=== PATIENT | male | born 1980 | race American Indian/Alaskan Native ===

== ENCOUNTER 2020-10-18 09:55 | Emergency (ER) | payer SELFPAY ==
[2020-10-18 10:51] VITALS: BP 121/53
--- NOTE | 2020-10-18 10:59 | Emergency Department Report ---
HPI - General Chief Complaint: Allergic Reaction Time Seen by Provider: 10/18/20 10:53 ED Review of Systems ROS: Stated complaint: ALLERGIC REACTION Other details as noted in HPI Physical Exam - Physical Exam Vital Signs: Vital Signs 10/18/20 10:49 Temperature 98.1 F Pulse Rate 80 Respiratory 16 Rate Blood Pressure 121/53 [Left] O2 Sat by Pulse 97 Oximetry ED Course Vital Signs 10/18/20 10:49 Temperature 98.1 F Pulse Rate 80 Respiratory 16 Rate Blood Pressure 121/53 [Left] O2 Sat by Pulse 97 Oximetry Critical care attestation.: If time is entered above; I have spent that time in minutes in the direct care of this critically ill patient, excluding procedure time. ED Disposition Condition: Stable
--- NOTE | 2020-10-18 11:05 | Emergency Department Report ---
ED Allergic Reaction HPI - General Chief complaint: Allergic Reaction Stated complaint: ALLERGIC REACTION Time Seen by Provider: 10/18/20 10:53 Source: patient Mode of arrival: Ambulatory Limitations: No Limitations - History of Present Illness Initial Comments: The patient was evaluated in the emergency department for symptoms described in the history of present illness. He/she was evaluated in the context of the global COVID-19 pandemic, which necessitated consideration that the patient might be at risk for infection with the virus that causes COVID-19. Institutional protocols and algorithms that pertain to the evaluation of patients at risk for COVID-19 are in a state of rapid change based on information released by regulatory bodies including the CDC and federal and state organizations. These policies and algorithms were followed during the patient's care in the emergency department. Please note that these policies, procedures and recommendations changed on a rapid basis. 40-year-old -[place] male presents to the emergency room complaining of rash like hives for 2 days. Patient states that it itches. States that it has been in his chest his neck extremities. Patient reports has been using alcohol which kind of helps but then they will come out at another spot. Patient states he did not take Benadryl as he has been working and did not want to be sleepy. Patient does admit that he stayed at a friend's house Friday to Friday. He denies any shortness of breath no difficulty swallowing no feeling of throat anastacio sing. He denies any past medical history currently takes no medications on a daily basis and has no primary care provider. MD Complaint: hives Onset/Timin -: days(s) Symptoms: itching Severity: mild Treatment Prior to Arrival: topical medicine Previous Allergy History: none - Related Data Previous Rx's Medication Instructions Recorded Last Taken Type Cetirizine HCl [Zyrtec 10mg tab] 10 mg PO QDAY #20 tablet 10/18/20 Unknown Rx Famotidine [Pepcid] 10 mg PO BID 10 Days #20 tablet 10/18/20 Unknown Rx Prednisone [predniSONE 5 mg (6-Day 5 mg PO .TAPER #1 tab.ds.pk 10/18/20 Unknown Rx Pack, 21 Tabs)] Allergies Allergy/AdvReac Type Severity Reaction Status Date / Time No Known Allergies Allergy Unverified 10/18/20 10:51 ED Review of Systems ROS: Stated complaint: ALLERGIC REACTION Other details as noted in HPI ED Past Medical Hx - Medications Home Medications: Home Medications Medication Instructions Recorded Confirmed Last Taken Type Cetirizine HCl [Zyrtec 10mg tab] 10 mg PO QDAY #20 tablet 10/18/20 Unknown Rx Famotidine [Pepcid] 10 mg PO BID 10 Days #20 tablet 10/18/20 Unknown Rx Prednisone [predniSONE 5 mg (6-Day 5 mg PO .TAPER #1 tab.ds.pk 10/18/20 Unknown Rx Pack, 21 Tabs)] ED Physical Exam - General Limitations: No Limitations General appearance: alert, in no apparent distress, other (Speaking in complete sentences) - Head Head exam: Present: atraumatic, normocephalic - Eye Eye exam: Present: normal appearance, PERRL. Absent: periorbital swelling - ENT ENT exam: Present: normal external ear exam - Neck Neck exam: Present: normal inspection, full ROM - Respiratory Respiratory exam: Present: normal lung sounds bilaterally. Absent: accessory muscle use - Cardiovascular Cardiovascular Exam: Present: regular rate - Extremities Exam Extremities exam: Present: normal inspection, full ROM - Back Exam Back exam: Present: normal inspection, full ROM, rash noted (Urticaria). Absent: tenderness - Neurological Exam Neurological exam: Present: alert, oriented X3, normal gait - Psychiatric Psychiatric exam: Present: normal affect, normal mood - Expanded Skin Exam Expanded Distribution of rash: neck, back Description of rash: Present: erythematous, macular, urticarial. Absent: tenderness ED Course Vital Signs 10/18/20 10:49 Temperature 98.1 F Pulse Rate 80 Respiratory 16 Rate Blood Pressure 121/53 [Left] O2 Sat by Pulse 97 Oximetry ED Medical Decision Making - Medical Decision Making 40-year-old -[place] male presents to the emergency room complaining of rash like hives for 2 days. Patient states that it itches. States that it has been in his chest his neck extremities. Patient reports has been using alcohol which kind of helps but then they will come out at another spot. Patient states he did not take Benadryl as he has been working and did not want to be sleepy. Patient does admit that he stayed at a friend's house Friday to Friday. He denies any shortness of breath no difficulty swallowing no feeling of throat closing. He denies any past medical history currently takes no medications on a daily basis and has no primary care provider. Patient be discharged home on a prednisone pack, prescription for Zyrtec to take for 2 weeks and Pepcid for 10 days. Instructed patient to follow-up with a primary care provider or an service desk associate to have allergy testing. Discussed with patient to return back to the emergency room if he has any any worsening rash that causes him to have difficulty breathing difficulty swallowing chest pain. Patient verbalized understanding Critical care attestation.: If time is entered above; I have spent that time in minutes in the direct care of this critically ill patient, excluding procedure time. ED Disposition Clinical Impression: Urticaria Disposition: HOME / SELF CARE / HOMELESS Is pt being admited?: No Does the pt Need Aspirin: No Condition: Stable Instructions: Hives, [id number] Additional Instructions: Please take medications as prescribed. Is very important for you to follow-up with your primary care provider or an allergy provider to see what you are actually allergic to. Return back to the emergency room if you become shortness of breath swelling difficulty swallowing difficulty breathing. Prescriptions: Famotidine [Pepcid] 10 mg PO BID 10 Days #20 tablet Prednisone [predniSONE 5 mg (6-Day Pack, 21 Tabs)] 5 mg PO .TAPER #1 tab.ds.pk Cetirizine HCl [Zyrtec 10mg tab] 10 mg PO QDAY #20 tablet Referrals: EDITH CAPONE MD [Staff Physician] - 3-5 Days Forms: Work/School Release Form(ED) Time of Disposition: 11:11
== END 2020-10-18 11:24 | disposition home or self-care (01) ==
LOC: ED 09:55
DX: L50.9 Urticaria, unspecified (principal); Z79.899 Other long term (current) drug therapy
CPT/HCPCS: 99281

== ENCOUNTER 2020-12-01 04:26 | Emergency (ER) | payer OTHER ==
[2020-12-01] MEDS ORDERED: FAMOTIDINE 20 MG/2 ML INJ IV ONE (04:47)
[2020-12-01] MEDS ORDERED: diphenhydrAMINE 50 MG/ML VIAL IV ONE (04:47)
[2020-12-01] MEDS ORDERED: EPINEPHrine/PF 1 MG/1 ML INJ IM ONE (04:48)
[2020-12-01] MEDS ORDERED: methylPREDNISolone Sod Succinate 125 MG/2 ML INJ IV ONE (04:49)
--- NOTE | 2020-12-01 04:54 | Emergency Department Report ---
<JOSIE PEREYRA - Last Filed: 12/01/20 06:25> ED General Adult HPI - General Chief complaint: Allergic Reaction Stated complaint: FACIAL SWELLING/BILATERAL FOOT PAIN Time Seen by Provider: 12/01/20 04:40 Source: patient Mode of arrival: Ambulatory Limitations: No Limitations - History of Present Illness Initial comments: 40-year-old male patient presents to the emergency department with complaints of swelling to his lips starting approximately 1 hour prior to arrival. Patient is unsure what he may have been exposed to prior to the onset of the symptoms. Patient did not take any medication prior to arrival. Denies shortness of breath, wheezing, dysphagia, hoarseness, rash, pruritus, syncope. Denies all other complaints at this time. - Related Data Previous Rx's Medication Instructions Recorded Last Taken Type Cetirizine HCl [Zyrtec 10mg tab] 10 mg PO QDAY #20 tablet 10/18/20 Unknown Rx Famotidine [Pepcid] 10 mg PO BID 10 Days #20 tablet 10/18/20 Unknown Rx Prednisone [predniSONE 5 mg (6-Day 5 mg PO .TAPER #1 tab.ds.pk 10/18/20 Unknown Rx Pack, 21 Tabs)] EPINEPHrine [Epipen 2-Wayne] 0.3 mg IM ONCE PRN #1 ml 12/01/20 Unknown Rx Famotidine [Pepcid] 20 mg PO BID 5 Days tablet 12/01/20 Unknown Rx predniSONE [Deltasone] 40 mg PO QDAY 5 Days tab 12/01/20 Unknown Rx Allergies Allergy/AdvReac Type Severity Reaction Status Date / Time No Known Allergies Allergy Unverified 10/18/20 10:51 ED Review of Systems Other: GENERAL: Negative for fever, chills, weight change, anorexia, fatigue. ENT: Positive for angioedema. CARDIOVASCULAR: Negative for chest pain, palpitations, lower extremity swelling. PULMONARY: Negative for cough, dyspnea, wheezing, orthopnea, cyanosis. GASTROINTESTINAL: Negative for abdominal pain, nausea, vomiting, diarrhea, constipation. MUSCULOSKELETAL: Negative for joint pain, joint swelling, myalgias, back pain, neck pain. NEUROLOGICAL: Negative for headache, seizure, syncope, paresthesias, weakness. INTEGUMENTARY: Negative for erythema, rash, diaphoresis, laceration, ecchymosis. HEMATOLOGICAL: Negative for hemoptysis, hematemesis, hematochezia, hematuria. PSYCHIATRIC: Negative for hallucinations, suicidal ideation, homicidal ideation, anxiety, depression. ED Past Medical Hx - Past Medical History Previous Medical History?: No - Surgical History Past Surgical History?: No - Medications Home Medications: Home Medications Medication Instructions Recorded Confirmed Last Taken Type Cetirizine HCl [Zyrtec 10mg tab] 10 mg PO QDAY #20 tablet 10/18/20 Unknown Rx Famotidine [Pepcid] 10 mg PO BID 10 Days #20 tablet 10/18/20 Unknown Rx Prednisone [predniSONE 5 mg (6-Day 5 mg PO .TAPER #1 tab.ds.pk 10/18/20 Unknown Rx Pack, 21 Tabs)] EPINEPHrine [Epipen 2-Wayne] 0.3 mg IM ONCE PRN #1 ml 12/01/20 Unknown Rx Famotidine [Pepcid] 20 mg PO BID 5 Days tablet 12/01/20 Unknown Rx predniSONE [Deltasone] 40 mg PO QDAY 5 Days tab 12/01/20 Unknown Rx ED Physical Exam - General Limitations: No Limitations - Other Other exam information: General: Awake and alert. No acute distress. Head: Atraumatic, normocephalic. Eyes: EOMI. Pupils are equal and round. Normal sclera and conjunctiva. ENT: Oral mucosa is moist. Angioedema of the lips is present. Uvula appears swollen. Voice sounds normal. Neck: Supple. No lymphadenopathy. Pulmonary: No respiratory distress. Clear to auscultation bilaterally. No wheezing or stridor. Cardiac: Tachycardic. Pulses are palpable and equal bilaterally. No lower extremity cyanosis or edema. Skin: Warm and dry. No rashes. Abdomen: Soft, non-tender, non-protuberant. No guarding, rigidity, or rebound. Bowel sounds are normal. No organomegaly or masses noted. Back: Normal alignment. No CVA tenderness. Extremities: Symmetrical. Full range of motion intact. Neurological: Alert and oriented, appropriately interactive, no focal deficits. Psych: Cooperative. Appropriate mood and affect. Speech is evenly metered. Thoughts are logically construed. ED Medical Decision Making - Medical Decision Making 04:53: Patient presents to the emergency department with angioedema suggestive of an allergic reaction. He is minimally tachycardic on arrival but protecting his airway well, no hypoxia, no respiratory distress, no wheezing, no stridor. Placed in room with cardiac sonographer and continuous pulse oximetry. Ordered Epinephrine, Benadryl, Solu-Medrol, and Pepcid. Attending emergency physician aware. 05:15: Patient remains stable. Medications administered. 06:32: On reevaluation, patient is resting comfortably. Tachycardia resolved. Repeat heart rate in the 80s. No hypoxia, no respiratory distress. Patient will be discharged home with prescription for steroids and antihistamine as well as an EpiPen following a period of observation in the emergency department to ensure no rebound symptoms occur following administration of epinephrine. Care of patient transferred to Dr. Vazquez, attending emergency physician, at change of shift for continued observation. Critical Care Time: Yes Critical care time in (mins) excluding proc time.: 74 Critical Care Time: A total of 74 minutes of critical care time was used in the stabilization and management of this patient, excluding procedure time. ED Disposition Clinical Impression: Allergic reaction Qualifiers: Encounter type: initial encounter Qualified Code(s): T78.40XA - Allergy, unspecified, initial encounter Disposition: HOME / SELF CARE / HOMELESS Is pt being admited?: No Does the pt Need Aspirin: No Condition: Stable Instructions: How to Use an Auto-Injector Pen Additional Instructions: Take Pepcid and Prednisone as directed. Use Benadryl as needed for itching. Carry an EpiPen with you at all times. Follow-up with primary care provider this week. Call today to schedule an appointment. See referral information below. Return to the emergency department immediately for new or worsening symptoms. Specifically, return to the emergency department immediately for shortness of breath, wheezing, increased swelling of the tongue/lips, rash, itching, mental status changes, chest pain, or any other concerns. Prescriptions: predniSONE [Deltasone] 40 mg PO QDAY 5 Days tab EPINEPHrine [Epipen 2-Wayne] 0.3 mg IM ONCE PRN #1 ml PRN Reason: Allergic Reaction Famotidine [Pepcid] 20 mg PO BID 5 Days tablet Referrals: EDITH CAPONE MD [Staff Physician] - 3-5 Days [facility] [Provider Group] - 3-5 Days <JACKELYN VAZQUEZ - Last Filed: 12/01/20 12:26> ED Review of Systems ROS: Stated complaint: FACIAL SWELLING/BILATERAL FOOT PAIN Other details as noted in HPI ED Course Vital Signs 12/01/20 12/01/20 12/01/20 04:33 04:47 05:21 Temperature 98.3 F Pulse Rate 102 H 84 80 Respiratory 16 19 15 Rate Blood Pressure 113/82 Blood Pressure 121/83 [Right] O2 Sat by Pulse 98 97 98 Oximetry 12/01/20 12/01/20 12/01/20 05:31 05:45 06:01 Temperature Pulse Rate 82 82 85 Respiratory 14 12 13 Rate Blood Pressure 123/78 110/72 118/75 Blood Pressure [Right] O2 Sat by Pulse 96 96 96 Oximetry 12/01/20 12/01/20 12/01/20 06:15 06:31 06:45 Temperature Pulse Rate 86 86 82 Respiratory 13 13 12 Rate Blood Pressure 112/70 114/68 109/65 Blood Pressure [Right] O2 Sat by Pulse 96 95 95 Oximetry 12/01/20 12/01/20 12/01/20 07:01 07:15 07:31 Temperature Pulse Rate 81 83 81 Respiratory 13 13 12 Rate Blood Pressure 107/65 117/73 106/66 Blood Pressure [Right] O2 Sat by Pulse 96 97 96 Oximetry 12/01/20 12/01/20 12/01/20 07:45 08:01 08:15 Temperature Pulse Rate 83 85 Respiratory 14 13 Rate Blood Pressure 109/70 111/64 101/61 Blood Pressure [Right] O2 Sat by Pulse 96 97 96 Oximetry 12/01/20 12/01/20 12/01/20 08:31 08:45 09:01 Temperature Pulse Rate Respiratory Rate Blood Pressure 116/57 111/56 103/60 Blood Pressure [Right] O2 Sat by Pulse 94 92 97 Oximetry 12/01/20 09:12 Temperature 98.3 F Pulse Rate 82 Respiratory 14 Rate Blood Pressure Blood Pressure 103/60 [Right] O2 Sat by Pulse 97 Oximetry ED Medical Decision Making - Medical Decision Making I saw this patient in conjunction with SELENA Strauss. During my initial evaluation the patient is resting comfortably. There is very mild lip angioedema. Oropharynx is clear. No drooling or trismus. The patient does not have any respiratory or acute distress. He says he is feeling improved. He was then evaluated and monitored for another few hours. Overall the patient has been in the emergency department for about 6 hours. There does not appear to be any current rebound allergic reaction. He will be discharged home with Solu-Medrol, Pepcid and an EpiPen. Critical care attestation.: If time is entered above; I have spent that time in minutes in the direct care of this critically ill patient, excluding procedure time. ED Disposition Is pt being admited?: No
[2020-12-01 09:12] VITALS: BP 103/60
== END 2020-12-01 09:13 | disposition home or self-care (01) ==
LOC: ED 04:26
DX: T78.3XXA Angioneurotic edema, initial encounter (principal); X58.XXXA Exposure to other specified factors, initial encounter; Y93.89 Activity, other specified; Y92.89 Other specified places as the place of occurrence of the external cause; Y99.8 Other external cause status
CPT/HCPCS: 96372; 96374; 96375; 99282; J0171; J1200; J2930